=== PATIENT | female | born 1980 | race Two or more races ===

== ENCOUNTER → 2022-05-04 | Emergency (ER) | payer OTHER ==
[~2022-05-04] VITALS: Ht 165.1 cm; Wt 61.2 kg
[~2022-05-04] MED LIST: IBUP600T27 PO; PRED20TA2 PO
[2022-05-04 22:51] VITALS: BP 136/91
== END | disposition left against medical advice (07) ==
LOC: ER 18:26
DX: M79.662 Pain in left lower leg (principal); M79.661 Pain in right lower leg; V09.9XXA Pedestrian injured in unspecified transport accident, initial encounter; Y93.89 Activity, other specified; Y92.89 Other specified places as the place of occurrence of the external cause; Y99.8 Other external cause status

== ENCOUNTER 2022-05-05 09:50 | Emergency (ER) | payer OTHER ==
[~2022-05-05] VITALS: Ht 165.1 cm; Wt 62.0 kg
[2022-05-05 11:13] LABS: Urine Bacteria NONE SEEN /hpf (None Seen); Urine Blood TRACE /uL (Negative); Urine Specific Gravity 1.002 (1.001-1.035); Urine WBC <1 /hpf (0 - 5)
[2022-05-05 11:27] VITALS: BP 113/78
[2022-05-05 11:44] LABS: Basophils # (auto) 0 10 ^3/uL (0-0.2); Basophils % (auto) 0.8 % (0.0-2.0); Eosinophils # (auto) 0.1 10 ^3/uL (0-0.8); Eosinophils % (auto) 1.2 % (0.0-7.0); Hemoglobin 14.1 g/dL (12.2-16.2); Lymphocytes # (auto) 1.2 10 ^3/uL (0.4-5.4); Mean Corpuscular Hemoglobin 32.3 pg (28.0-32.0); Mean Corpuscular Hgb Conc. 33.6 g/dL (32.0-36.0); Mean Corpuscular Volume 96.1 fL (80.0-100.0); Monocytes # (auto) 0.3 10 ^3/uL (0-1.3); Monocytes % (auto) 5.6 % (0.0-12.0); Neutrophils # (auto) 3.3 10 ^3/uL (1.6-8.6); Neutrophils % (auto) 67.4 % (37.0-80.0); Nucleated Red Blood Cells % 0.2 %; Red Blood Cells 4.37 10^6/uL (4.0-5.20); Red Cell Distribution Width 13.3 % (11.8-14.3); White Blood Cell 4.9 10^3/uL (4.4-10.8)
[2022-05-05 12:00] LABS: BUN/Creatinine Ratio 6.7; Calcium 9.1 mg/dL (8.5-10.1); Potassium 4.1 mmol/L (3.5-5.1)
[2022-05-05] MEDS ORDERED: PRED20TA2 PO (12:28)
[2022-05-05] MEDS ORDERED: IBUP600T27 PO (12:28)
[2022-05-05] MEDS ORDERED: KETOROLAC TROMETH 60MG/2ML VIAL IM ONE (12:30)
== END 2022-05-05 12:44 | disposition home or self-care (01) ==
LOC: ER 09:50
DX: S39.012A Strain of muscle, fascia and tendon of lower back, initial encounter (principal); G89.29 Other chronic pain; M54.16 Radiculopathy, lumbar region; V09.09XA Pedestrian injured in nontraffic accident involving other motor vehicles, initial encounter; Y93.89 Activity, other specified; Y92.89 Other specified places as the place of occurrence of the external cause; Y99.8 Other external cause status
CPT/HCPCS: 36415; 72100; 80048; 81001; 81025; 85025; 96372; 99284; J1885

== ENCOUNTER 2022-11-19 20:55 | Emergency (ER) | payer MEDICAID, OTHER ==
[~2022-11-19] VITALS: Ht 165.1 cm; Wt 61.4 kg
[~2022-11-19 20:55] MED LIST changes: +IBUP-1454 PO; -IBUP600T27 PO
[2022-11-19 21:56] LABS: Urine Bacteria FEW /hpf (None Seen); Urine Blood Negative /uL (Negative); Urine Specific Gravity 1.009 (1.001-1.035); Urine WBC 1 /hpf (0 - 5)
[2022-11-19 23:36] VITALS: BP 128/82
[2022-11-20] MEDS ORDERED: HYDROcodone-ACET 5/325MG TAB PO ONE (04:00)
[2022-11-20] MEDS ORDERED: CYCL-839 PO (05:08)
[2022-11-20] MEDS ORDERED: IBU600T PO (05:08)
== END 2022-11-20 05:12 | disposition home or self-care (01) ==
LOC: ER 20:55
DX: S33.5XXA Sprain of ligaments of lumbar spine, initial encounter (principal); S76.011A Strain of muscle, fascia and tendon of right hip, initial encounter; S09.90XA Unspecified injury of head, initial encounter; W18.39XA Other fall on same level, initial encounter; Y93.89 Activity, other specified; Y92.091 Bathroom in other non-institutional residence as the place of occurrence of the external cause; Y99.8 Other external cause status
CPT/HCPCS: 70450; 72131; 73502; 81001; 81025